=== PATIENT | female | born 1990 | race Hispanic/Latino ===

== ENCOUNTER 2025-07-27 01:12 | Emergency (ER) | payer SELFPAY ==
[~2025-07-27] VITALS: Ht 165.1 cm; Wt 77.1 kg
[2025-07-27 01:15] VITALS: BP 136/90; PULSE 88; RESP 20; TEMP 98
--- NOTE | 2025-07-27 01:41 | ERN ---
ED Note History of Present Illness Stated Complaint: KNEE PAIN Chief Complaint: Knee Injury/Swelling Time Seen by MD: 01:21 Dictation: This is a 35-year-old female who presented to the emergency room with severe pain in her left knee. She stated that yesterday around 10:00 a.m. she was running with her dog and slipped and fell sustained injury to the left knee but she did not think much of it brushed it off and went home however later in the day she began experiencing pain. She took Motrin at 1:00 a.m. as the pain was unbearable she came into the ER for further evaluation. No problems ambulating. No fever chills or rigors. No loss of consciousness or injury to the head. Temperature 98 pulse 88 respirations 20 blood pressure 136/90 with a pulse oximetry of 100% on room air Allergies: Coded Allergies: No Known Allergies (Unverified Allergy, Unknown, 07/27/25) Home Meds Active Scripts Ketorolac Tromethamine (Toradol) 10 Mg Tab, 10 MG PO QID for pain for 5 Days, #20 TAB 0 Refills Prov:ELLEN ANDERSEN MD 07/27/25 Past Medical History Past Medical History: No Pertinent History Surgical History: Family History: Negative LMP: Jul 25, 2025 RN Note Reviewed/Agreed w/PFSH: Yes Review of System Dictation Constitutional: Negative for fever,chills, and weight loss Eyes: Negative for injury, pain,redness, and discharge ENT: Negative for injury,pain or swelling Cardiovascular: Negative for chest pain, palpitations, and edema Respiratory: Negative for shortness of breath, cough, and wheezing, Abdomen/GI: Negative for abdominal pain, nausea, vomiting, diarrhea, and constipation Back: Negative for injury and pain : Negative for injury, bleeding and discharge MS/Extremity: Positive for injury to the left knee from a fall Skin: Negative for rash, and discoloration Neuro: Negative for headache, weakness, numbness, tingling, and seizure Psych: Negative for suicide ideation, homicidal ideation, and hallucinations Initial Vital Sign VS Vital Signs Date Time Temp Pulse Resp B/P (MAP) Pulse Ox O2 Delivery O2 Flow Rate FiO2 07/27/25 01:15 98.1 88 20 136/90 100 Room Air Physical Exam Dictation General: awake, alert, NAD Head/Face: Normocephalic, atraumatic Eyes: PERRL, EOMI, vision at baseline ENT: oral cavity clear, TMs clear, no signs of infection Neck: Trachea midline, supple, no nuchal rigidity Cardiovascular: RRR, normal S1/S2, No MRGs, no JVD Respiratory: CTAB, no respiratory distress, No rales or wheezes Abdomen: Soft, non-tender, non-distended, normal bowel sounds, no guarding or rebound. Skin: Warm, dry, normal turgor, no rash MS/Extremity: Pulses equal, no cyanosis, neurovascular intact, FROM mild swelling and bruising of the left knee; popliteal fossa did not see any ruptured Kay's cyst Neuro: COAx4, GCS 15, strength 5/5, CN 2-12 intact, normal cerebellar exam, normal gait, Psych: Normal behavior, mood, and affect normal Extremities-trace edema without any palpable cords, Homans sign is negative Results (Laboratory/Radiology) Labs Reviewed?: Yes X-RAY Comment: REASON: FALL INJURY ORDERING PHYSICIAN: ELLEN ANDERSEN MD PROCEDURE: KNEE 3V LT - KNEE 3VWS LT EXAM: CR Left Knee, 3 Views. CLINICAL HISTORY: FALL INJURY COMPARISON: None provided. FINDINGS: BONES: No acute fracture or aggressively appearing osseous lesion. JOINTS: The joint spaces show no significant degenerative disease; however, note is made of early tibial intercondylar spiking. There is no joint effusion appreciated. SOFT TISSUES: The soft tissues are unremarkable. IMPRESSION: No acute osseous pathology evident. /[place] DICTATED BY: NATALIE CADENA Jr., MD DATE: 07/27/25402 ELECTRONICALLY SIGNED BY: NATALIE CADENA Jr., MD DATE: 07/27/25402 Close ED Course ED Course Orders Procedure Category Date Status Time Knee 3vws Lt RAD 07/27/25 Resulted 01:36 Ketorolac PHA 07/27/25 Complete Tromethamine 30mg/Ml 03:30 Methylprednisolone PHA 07/27/25 Complete Succ 125mg (Solu-Medr 03:30 Current Medications Medications (Trade) Dose Ordered Sig/Jomar Route PRN Reason Start Time Stop Time Status Last Admin Dose Admin Ketorolac Tromethamine (toRADol) 30 mg ONCE ONCE IM 07/27/25 03:30 07/27/25 03:31 DC 07/27/25 03:27 Methylprednisolone Sodium Succinate (Solu-medROL 125MG) 60 mg ONCE ONCE IM 07/27/25 03:30 07/27/25 03:31 DC 07/27/25 03:27 Vital Signs Date Time Temp Pulse Resp B/P (MAP) Pulse Ox O2 Delivery O2 Flow Rate FiO2 07/27/25 01:15 98.1 88 20 136/90 100 Room Air Medical Decision Making MDM Differential diagnosis-patellar fracture, suprapatellar bursitis, contusion of the knee, fracture of the long bones, hematoma, anserine bursitis, tear of the cruciate ligaments, meniscus tear This is a 35-year-old female who presented to the emergency room with severe pain in her left knee. She stated that yesterday around 10:00 a.m. she was running with her dog and slipped and fell sustained injury to the left knee but she did not think much of it brushed it off and went home however later in the day she began experiencing pain. She took Motrin at 1:00 a.m. as the pain was unbearable she came into the ER for further evaluation. No problems ambulating. No fever chills or rigors. No loss of consciousness or injury to the head. Temperature 98 pulse 88 respirations 20 blood pressure 136/90 with a pulse oximetry of 100% on room air Updated patient on x-ray of the knee which did not show any fractures or dislocations. I updated the patient and her significant other that patient could still have soft tissue injury or contusion that we will not be visualized on the x-rays. I have recommended that she should follow up with an orthopedic surgeon to evaluate for any ligamental or meniscus tear. Patient was given a knee immobilizer for a few days and given pain medication. Rationale: Tests considered and ordered secondary to shared decision making include: X-ray of the left knee Previous outside records reviewed: Old ER visits. Risk of complication and/or morbidity or mortality of patient management: None Medications-Per medication reconciliation Need for hospitalization: Patient does not meet criteria for hospitalization. Need for emergency major/minor surgery: No There are no social concerns with this patient. Prescription drug management Prescriptions will include symptomatic care Patient's prior external medical records from other ER visits were reviewed by me as indicated. Prior testing and results from previous visits were reviewed. Prior tests were taken into account with medical decision making and resource utilization, independent historian/historians were used to obtain complete medical history. I independently interpreted the test that were performed, results were reviewed by me and considered findings on radiology if ordered. Medical management and examination interpretation discussions were had by me with other qualified healthcare professionals as indicated for the patient's care. Problem List Problem List: (1) Fall injury while running (2) Contusion of left knee DX & DISP Disposition: Discharge Departure Impression: Primary Impression: Contusion of left knee Additional Impression: Fall injury while running Condition: Stable Scripts Ketorolac Tromethamine (Toradol) 10 Mg Tab 10 MG PO QID for pain for 5 Days, #20 TAB 0 Refills Prov: ELLEN ANDERSEN MD 07/27/25 Additional Instructions: Patient and the caregiver have been informed of all the diagnostic tests and the imaging conducted during the today's visit to the emergency room and has verbalized understanding of the results I have personally reviewed and interpreted all diagnostic exams performed here in the ER today as well as the vital signs documented by the nursing staff. The patient is now being discharged to home and should follow up with the primary care physician or the specialist as directed by the ER staff. Follow-up with primary care provider in 1 to 2 days. Take medications as directed here in the emergency room. Okay to continue home medications unless otherwise discussed during your visit in the emergency room today. Return to your nearest emergency room if symptoms worsen or if there is no improvement. Call 911 if you need immediate assistance. Take Tylenol or Motrin [id number] as needed and if no contraindications are present. Increase o ral hydration. A wound culture or urine culture was ordered here in the emergency room department please follow-up with primary care provider and advise them to get repeat ports from our facility. If you had any Lam wrap/splints that were applied here, please do not remove them until you see your primary care or specialty. Referrals: SELF,REFERRAL (PCP) MAITE LINDSEY ANURADHA R MD Jul 27, 2025 01:41
--- NOTE | 2025-07-27 03:05 | HMCIMG ---
EXAM: CR Left Knee, 3 Views. CLINICAL HISTORY: FALL INJURY COMPARISON: None provided. FINDINGS: BONES: No acute fracture or aggressively appearing osseous lesion. JOINTS: The joint spaces show no significant degenerative disease; however, note is made of early tibial intercondylar spiking. There is no joint effusion appreciated. SOFT TISSUES: The soft tissues are unremarkable. IMPRESSION: No acute osseous pathology evident. /[place]
--- NOTE | 2025-07-27 03:17 | NUR ---
KNEE IMMOBILIZER APPLIED TO L KNEE, PATIENT TOLERATED WELL
[2025-07-27] MEDS ORDERED: KETO10 PO (03:18)
== END 2025-07-27 03:36 | disposition home or self-care (01) ==
LOC: EDH 01:12
DX: S80.02XA Contusion of left knee, initial encounter (principal); Z98.890 Other specified postprocedural states; W01.0XXA Fall on same level from slipping, tripping and stumbling without subsequent striking against object, initial encounter; Y93.02 Activity, running; Y92.89 Other specified places as the place of occurrence of the external cause; Y99.8 Other external cause status
CPT/HCPCS: 99284; 29505; 73562; 96372 ×2; J1885; J2919